=== PATIENT | female | born 1960 | race Caucasian/White ===

== ENCOUNTER → 2016-10-14 | Outpatient (CLI) | payer BC ==
[~2016-10-14] MED LIST: ALPR1TAB3 PO; CIME-56 PO; CLC100X PO; ESCI1TAB10 PO; LACT3000 PO
--- NOTE | 2016-10-14 12:36 | MAMMOGRAPHY REPORT ---
UNILATERAL RIGHT DIGITAL DIAGNOSTIC MAMMOGRAM TOMOSYNTHESIS WITH CAD: 10/14/2016 CLINICAL HISTORY: History of right breast cancer status post lumpectomy August 2014. Here for int erval follow-up. TECHNIQUE: Breast tomosynthesis in addition to standard 2D mammography was performed. Current study was also evaluated with a Computer Aided Detection (CAD) system. Right CC and MLO 2-D and tomosynt hesis images and spot magnification right cc and ML views were obtained. COMPARISON: Comparison is made to exams dated: 03/02/2016 mammogram, 08/25/2015 mammogram, 02/17/2015 mammogram, 07/16/2014 mammogram, 06/11/2014 mammogram, and 06/05/2014 mammogram - [facility]. BREAST COMPOSITION: There are scattered areas of fibroglandular density in the right breast. FINDINGS: There has been no significant interval change in the right breast compared to prior exams. There are stable postoperative changes in the right 12:00 breast from prior lumpectomy, including stable architectural distortion and surgical clips at the lumpectomy bed. A biopsy marker clip is a gain noted in the right upper outer quadrant from prior benign stereotactic biopsy. Spot magnificat ion views demonstrate at least 2 small groupings of very faint punctate calcifications in the latera l right breast, which are stable dating back to at least July 2014 and are therefore probably becky ign; a similar appearing group was previously biopsied and yielded benign pathology. No new cluster s of calcifications are seen. No suspicious masses or areas of architectural distortion are noted. IMPRESSION: ACR-BI-RADS CATEGORY 3: PROBABLY BENIGN Stable posttreatment changes in the right breast, with stable small groupings of faint calcification s in the right lateral breast which are probably benign. Recommend bilateral diagnostic mammograms in 6 months, to reevaluate the right breast postsurgical changes and right breast calcifications and for routine mammography of the left breast. The patient has been verbally notified of the results. Approximately 10% of breast cancers are not detected with mammography. A negative mammographic repor t should not delay biopsy if a clinically suggestive mass is present. Stephanie Carmona M.D. /:10/14/2016 10:42:11 Retail Representative: Twan SHEPPARD(Tatyana)(Arleen), [facility] letter sent: Personal History 3 BI-RADS Code: ACR-BI-RADS Category 3: Probably Benign
== END | disposition home or self-care (01) ==
LOC: C.MAMM 09:07
PROVIDERS: ATTEND Physician Assistant Medical
DX: R92.1 Mammographic calcification found on diagnostic imaging of breast (principal); Z85.3 Personal history of malignant neoplasm of breast

== ENCOUNTER → 2017-01-07 | Outpatient (CLI) | payer BC ==
--- NOTE | 2017-01-07 08:25 | DIAGNOSTIC IMAGING REPORT ---
ABDOMINAL ULTRASOUND, RIGHT LOWER QUADRANT HISTORY: Pain BREAST CA. COMPARISON: None. FINDINGS: No evidence for hernia or mass bile sent criteria of the right flank and right lower quadrant IMPRESSION: No significant abnormality identified within the right lower quadrant Electronically signed by: Reynaldo Santos M.D. 01/07/2017 8:23 AM Dictated Date/Time: 01/07/2017 8:21 AM
== END | disposition home or self-care (01) ==
LOC: C.ULTR 07:19
PROVIDERS: ATTEND Nurse Practitioner Family
DX: D05.10 Intraductal carcinoma in situ of unspecified breast (principal)

== ENCOUNTER → 2017-04-18 | Outpatient (CLI) | payer BC ==
--- NOTE | 2017-04-18 15:12 | MAMMOGRAPHY REPORT ---
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 She also has a history of bilateral benign stereotactic biopsies of additional microcalcifications. She presents for annual mammography. TECHNIQUE: Breast tomosynthesis in addition to standard 2D mammography was performed. Spot magnific ation views of the right breast were also obtained. Current study was also evaluated with a Computer Aided Detection (CAD) system. COMPARISON: Comparison is made to exams dated: 10/14/2016 mammogram, 03/19/2016 mammogram, 03/02/2016 m ammogram, 08/25/2015 mammogram, 06/05/2014 mammogram - [facility], and 06/18/2008. BREAST COMPOSITION: There are scattered areas of fibroglandular density in both breasts. FINDINGS: There is expected architectural distortion and surgical clips in the 12:00 middle one third of the right breast, at the site of prior lumpectomy. There are stable metallic biopsy markers in t he upper outer quadrant of each breast. No obvious new mass, developing asymmetry or focal area of a rchitectural distortion is seen bilaterally. Spot magnification views of the right breast redemonstrate 2-3 faint groupings of punctate and amorph ous microcalcifications lateral to the surgical clips and in the lateral anterior breast on the spot magnification CC view. These appear very similar to the spot magnification views obtained on 017 and they are most likely benign. No other new suspicious cluster of microcalcifications is ident ified in the right breast. Another 12 month follow-up diagnostic mammogram including spot magnificat ion views is recommended to ensure longer stability. No new or suspicious microcalcifications are id entified in the left breast. IMPRESSION: ACR-BI-RADS CATEGORY 3: PROBABLY BENIGN 1. Stable posttreatment changes in the right breast and stable 2-3 faint groupings of punctate and a morphous microcalcifications in the middle and anterior one third of the breast, detailed above. Ano ther 12 month follow-up diagnostic mammogram including spot magnification views is recommended to ens ure longer stability. Annual bilateral screening mammography will also be due at that time. 2. During this diagnostic appointment, the patient reported new symptoms of weight loss, fatigue, ho arseness and chest symptoms. She also has a smoking history. I urged her to discuss these symptoms with her primary care physician or oncologists and additional cross-sectional imaging may be required . These results and recommendations were discussed with the patient at the time of the exam. She tenta tively scheduled the follow-up diagnostic appointment prior to leaving our department. Approximately 10% of breast cancers are not detected with mammography. A negative mammographic report should not delay biopsy if a clinically suggestive mass is present. Irasema Mcdowell M.D. ay/:04/18/2017 12:24:51 Retort Kiln Burner: Komal PRADHAN)(Arleen), [facility] letter sent: Follow Up Recommended 3 BI-RADS Code: ACR-BI-RADS Category 3: Probably Benign
== END | disposition home or self-care (01) ==
LOC: C.MAMM 08:59
PROVIDERS: ATTEND Physician Assistant Medical
DX: R92.0 Mammographic microcalcification found on diagnostic imaging of breast (principal); Z85.3 Personal history of malignant neoplasm of breast; Z08 Encounter for follow-up examination after completed treatment for malignant neoplasm

== ENCOUNTER → 2017-04-29 | Outpatient (CLI) | payer BC ==
[2015-06-11 13:51] VITALS: BP 105/69; PULSE 76
[2017-04-29 09:41] VITALS: BP 105/72; PULSE 52; TEMP 36.5; O2SAT 97
--- NOTE | 2017-04-29 11:09 | Radiation Oncology Follow-Up ---
Radiation Oncology Follow-Up Date of Visit Apr 29, 2017. Reason For Visit Follow-up and concern for weight loss Radiation Completion Date 10/25/14 Diagnosis (1) DCIS (ductal carcinoma in situ) Status: Resolved Onset Date: 06/19/2014 Stage: 0 Permanent Comment: Family history of breast cancer Abnormal mammogram 06/05/2014 Status post stereotactic guided biopsy of the right breast 06/19/2014 revealing high-grade DCIS Status post lumpectomy 08/06/2014 revealing DCIS staged pTisNX estrogen receptor positive progesterone receptor positive Status post completion of radiation therapy 10/25/2014 received 6120 cGy Participation in REATA study Last Edited By: Chelsi Campos on Jun 11, 2015 15:17 Interim History Is seen in follow-up today at her request. She had her routine mammogram 2016. This showed stable post therapy changes in the right breast and stable 2- 3 feet groupings of punctate and amorphous calcifications in the middle and anterior one third of the breast. Twelve-month follow-up was recommended with spot magnification views. The annual screening mammogram will be due at that time. She also had the complaint of weight loss, fatigue, and hoarseness. She discuss this with the radiologist who recommended that she come in for an evaluation. Her weight loss was discussed. She had lost 15 pounds when dieting. She regained the weight. An over the past few months she has lost weight again without dieting. She has been having some discomfort in her mid back. This is in the musculature of the back and not of the spine. She is been having hoarseness of voice over the past few weeks. This is currently not happening when speaking to her. She does have a history of reflux and intermittently takes Tagamet. It is intermittent. In discussing with her her symptoms she related that she has been under a lot of stress. She has stress at work. 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 She has a new relationship and her life. She is a smoker. She smoked one half pack per day for 38 years. She continues to smoke on a very minimal basis. She is trying to quit. She is using to contain patches. She is concerned about her family history mother passed 51 due to metastatic breast cancer. She had BRCA analysis completed and was negative. Allergies Coded Allergies: Fexofenadine (Unverified Allergy, Unknown, rash, 08/01/14) Phenobarbital (Unverified Allergy, Unknown, tongue swells, 08/01/14) Propantheline (Unverified Allergy, Unknown, tongue swells, 08/01/14) Home Medications Scheduled Alprazolam (Xanax), 1 MG PO HS Escitalopram Oxalate (Lexapro), 40 MG PO DAILY Scheduled PRN Cimetidine (Tagamet), 600 MG PO DAILY PRN for Indigestion Docusate Sodium (Colace), 100 MG PO BID PRN for Constipation Lactase (Lactaid), 1 TAB PO DIRECTED PRN for Dyspepsia Review of Systems Gastrointestinal: Symptoms: Rectal Bleeding GI Comments: Rectal spotting at times which pt states she's had evaluated; Oral: Symptoms: No Problems Respiratory: Symptoms: WNL Other Respiratory: Hoarseness; Urinary: Symptoms: WNL Skin: Symptoms: No Problems Breast: Right Upper Arm Measurement: 27.0 Right Mid Arm Measurement: 23.5 Right Wrist Measurement: 15.0 Left Upper Arm Measurement: 27.0 Left Mid Arm Measurement: 22.0 Left Wrist Measurement: 15.5 Arm Dominence: Right Patient Cosmetic Evaluation: Good Staff Cosmetic Evalaluation: Good Physical Exam Vital Signs Date Time Temp Pulse Resp B/P (MAP) Pulse Ox O2 Delivery O2 Flow Rate FiO2 04/29/17 09:41 36.5 52 20 105/72 97 Pain: Side: Bilateral Pain Location: None Patient Pain Scale: 0 - 10 Initial Pain Intensity: 0.0 Fatigue: None General Appearance: no apparent distress Eyes: normal inspection, EOMI ENT: normal ENT inspection, hearing grossly normal Neck: no adenopathy, thyroid normal Respiratory/Chest: lungs clear, no respiratory distress, no accessory muscle use Breast: Breast examination reveals well-healed incision of the right breast. There is fibrous tissue along the incision line and most notably in the center of the incision. Is nontender. There are no masses or tenderness and no axillary adenopathy. Using the Fidelity score cosmesis she has a in excellent outcome. The left breast showed no masses or tenderness no axillary adenopathy. Cardiovascular: regular rate, rhythm, no gallop, no murmur Abdomen: normal bowel sounds, non tender Extremities: no pedal edema Neurologic/Psychiatric: no motor/sensory deficits, alert, normal mood/affect Skin: warm/dry Laboratory Studies Test 04/29/17 10:36 Additional Studies Patient: DEEPTI ANDREW [facility] Rec: [id number] Address1: [address] Address2: Acct ID: [id number] Date: 1960 Sex: F Ref Phy: Chelsi Campos PA-C Att Phy: Chelsi Campos PA-C Brooke Phy: Renetta Franklin C.R.N.P. Inter Phy: Irasema Mcdowell MD [facility] Zip: [place] [id number] SC: C.MAMM Report #: [id number] Private Mortgage Banker Safe: JOSELYN Diagnosis: 6 MONTH F/U BILATERAL--HX BREAST CA Service Date: 04/18/17 MNE: [id number] Ordering Dr: Chelsi Campos PA-C CC: Chelsi Campos PA-C CONF: DICTATED BY: Irasema Mcdowell MD MAMMOGRAPHY REPORT BILATERAL DIGITAL DIAGNOSTIC MAMMOGRAM TOMOSYNTHESIS WITH CAD: 04/18/2017 CLINICAL HISTORY: 57-year-old woman with a personal history of right breast DCIS status post breast conservation therapy. She also has a history of bilateral benign stereotactic biopsies of additional microcalcifications. She presents for annual mammography. TECHNIQUE: Breast tomosynthesis in addition to standard 2D mammography was performed. Spot magnification views of the right breast were also obtained. Current study was also evaluated with a Computer Aided Detection (CAD) system. COMPARISON: Comparison is made to exams dated: 10/14/2016 mammogram, 03/19/2016 mammogram, 03/02/2016 mammogram, 08/25/2015 mammogram, 06/05/2014 mammogram - [facility], and 06/18/2008. BREAST COMPOSITION: There are scattered areas of fibroglandular density in both breasts. FINDINGS: There is expected architectural distortion and surgical clips in the 12:00 middle one third of the right breast, at the site of prior lumpectomy. There are stable metallic biopsy markers in the upper outer quadrant of each breast. No obvious new mass, developing asymmetry or focal area of architectural distortion is seen bilaterally. Spot magnification views of the right breast redemonstrate 2-3 faint groupings of punctate and amorphous microcalcifications lateral to the surgical clips and in the lateral anterior breast on the spot magnification CC view. These appear very similar to the spot magnification views obtained on 10/14/2016 and they are most likely benign. No other new suspicious cluster of microcalcifications is identified in the right breast. Another 12 month follow-up diagnostic mammogram including spot magnification views is recommended to ensure longer stability. No new or suspicious microcalcifications are identified in the left breast. IMPRESSION: ACR-BI-RADS CATEGORY 3: PROBABLY BENIGN 1. Stable posttreatment changes in the right breast and stable 2-3 faint groupings of punctate and amorphous microcalcifications in the middle and anterior one third of the breast, detailed above. Another 12 month follow-up diagnostic mammogram including spot magnification views is recommended to ensure longer stability. Annual bilateral screening mammography will also be due at that time. 2. During this diagnostic appointment, the patient reported new symptoms of weight loss, fatigue, hoarseness and chest symptoms. She also has a smoking history. I urged her to discuss these symptoms with her primary care physician or oncologists and additional cross-sectional imaging may be required. These results and recommendations were discussed with the patient at the time of the exam. She tentatively scheduled the follow-up diagnostic appointment prior to leaving our department. Approximately 10% of breast cancers are not detected with mammography. A negative mammographic report should not delay biopsy if a clinically suggestive mass is present. Irasema Mcdowell M.D. ay/:04/18/2017 12:24:51 Computer Meteorologist: Komal PRADHAN)(Arleen), [facility] letter sent: Follow Up Recommended 3 BI-RADS Code: ACR-BI-RADS Category 3: Probably Benign Dictated by: Irasema Mcdowell MD Signed by: Irasema Mcdowell MD Assessment & Plan Plan: We discussed the above symptoms. It is likely that many of the symptoms that she is having is due to stress. Of asked her to do stretching exercises to help back discomfort. She has Tagamet which she has taken on a when necessary basis for reflux. I've asked her to take it regularly for one week to see if this helps with the hoarseness of the voice. We will check a TSH to review for any abnormality of thyroid function. She'll continue on her schedule of mammography. We discussed bite shots to the area of fibrous tissue of the breast. We asked her to return to our office in 3 months. She'll need to continue follow-up with her family physician in regards to her symptoms. We also discussed low-dose CT. She does not meet the criteria with a 19 year pack history. She'll continue to wean off of cigarettes. Her goal is to stop smoking by September. Total Time In Follow-Up I spent 25 minutes speaking to the patient performing examination. I spent 15 minutes reviewing information in completing this note. AK Copy To Renetta Franklin C.R.N.P. Problem Qualifiers (1) DCIS (ductal carcinoma in situ): Laterality: right Qualified Codes: D05.11 - Intraductal carcinoma in situ of right breast
== END | disposition home or self-care (01) ==
LOC: C.ONC 09:13
PROVIDERS: ATTEND Physician Assistant Medical
DX: Z08 Encounter for follow-up examination after completed treatment for malignant neoplasm (principal); Z92.3 Personal history of irradiation; Z85.3 Personal history of malignant neoplasm of breast

== ENCOUNTER → 2017-06-07 | Outpatient (CLI) | payer OTHER, BC ==
--- NOTE | 2017-06-07 11:15 | DIAGNOSTIC IMAGING REPORT ---
LEFT KNEE 1 OR 2 VIEWS ROUTINE CLINICAL HISTORY: Left knee pain following fall. COMPARISON: None FINDINGS: Alignment of the left knee is anatomic. No acute fracture is identified. No definite joint effusion is identified. Joint spaces are preserved. IMPRESSION: No acute fracture. Electronically signed by: Demetrius Manley M.D. 06/07/2017 11:13 AM Dictated Date/Time: 06/07/2017 11:12 AM
== END | disposition home or self-care (01) ==
LOC: C.RAD1850 10:58
PROVIDERS: ATTEND Emergency Medicine
DX: M25.562 Pain in left knee (principal)

== ENCOUNTER → 2018-01-09 | Outpatient (CLI) | payer OTHER ==
--- NOTE | 2018-01-09 09:50 | Discharge Instructions ---
Discharge Instructions Procedure Procedure Date: Jan 09, 2018. Reason for visit: Right Breast Mass/Possible Bx @ Lumpectomy Site. Discharge Discharge Date: Jan 09, 2018. Discharge Diagnosis: post right breast ultrasound guided core biopsy Instructions Activity Recommendations: Additional Limitations (see below) Return to School/Work: no limitations Recommended Home Diet: No Limitations Provider Instructions: ACTIVITY RECOMMENDATIONS: * No lifting, pushing, pulling or exercising the affected side for three days. RETURN TO SCHOOL/WORK: * You may return to work/school after the procedure, but do not perform any strenuous activities for 24 to 48 hours. MEDICATIONS: * Tylenol (two 325 mg) every four to six hours if needed for mild pain (if not allergic to Tylenol). DIET: * Resume previous diet. SPECIAL CARE INSTRUCTIONS: * Keep biopsy site dry for 24 hours. May shower after 24 hours, but do not soak (bathe) incision. * May remove Tegaderm (plastic patch) tomorrow AFTER showering. * Leave the steri-strips on for one week. Allow the steri-strips to fall off by themselves. If not off after one week, you may remove them. You may place a Bandaid crosswise over the strips, if desired. * Apply ice 10 minutes on and 10 minutes off as needed. * Wear a bra at bedtime to sleep more comfortably for 2-3 days. * Your referring physician should have the results after approximately 5 to 7 business days. * Call for unusual bleeding, fever, drainage, etc or if you have any questions call [phone] during normal business hours or after hours call Dr Mcdowell, . FOLLOW UP VISIT: Follow-up with Referring Physician as scheduled. Allergies Coded Allergies: Fexofenadine (Unverified Allergy, Unknown, rash, 08/01/14) Phenobarbital (Unverified Allergy, Unknown, tongue swells, 08/01/14) Propantheline (Unverified Allergy, Unknown, tongue swells, 08/01/14) Florencio Dang Recommendations: Call your doctor if: * Temperature above 101 degrees * Pain not relieved by pain medicine ordered * There is increased drainage or redness from any incision * You have any unanswered questions or concerns. Your Doctors Instructions noted above were prepared by provider Irasema Mcdowell. Patient Signature Section: Patient Instructions Signature Page Patricia Hayes Patient (or Guardian) Signature/Date: I have read and understand the instructions given to me by my caregivers. Caregiver/RN/Doctor Signature/Date: The above-named patient and/or guardian has received patient instructions on this date. + Original Patient Signature Page (only) stays with chart. Please make copy for patient.
--- NOTE | 2018-01-10 07:38 | MAMMOGRAPHY REPORT ---
ULTRASOUND GUIDED BIOPSY RIGHT BREAST: 01/09/2018 CLINICAL HISTORY: Newly palpable lump over the lumpectomy scar in the 1:00 right breast. Patient pre sents for ultrasound-guided core biopsy. COMPARISON: Comparison is made to exams dated: 01/09/2018 ultrasound, 01/09/2018 mammogram, 04/18/2017 ma mmogram, 03/19/2016 stereotactic biopsy, 03/19/2016 mammogram, and 03/02/2016 mammogram - [facility]. PATIENT CONSENT: The procedure, risks and benefits were discussed with the patient and informed conse nt was obtained both verbally and in writing. Specific risks to this procedure include: bleeding, in fection, puncture of adjacent structure, nontarget biopsy, sampling error, pain, metal allergy and me dication reaction. PROCEDURE DESCRIPTION: A time out was performed and the right breast was agreed as the site of biopsy . The skin was prepped and draped in the usual sterile fashion. The hypoechoic superficial 1.3 cm mas s in the 1:00 right breast was chosen as the target for biopsy. Subcutaneous and intraparenchymal 1% buffered lidocaine, with and without epinephrine, was administered as local anesthesia. A skin incisi on was made. Through the incision, 4 samples were taken with a 14 gauge Achieve biopsy device. A rib bon shaped metallic marker was placed at the biopsy site. Hemostasis was achieved after manual compre ssion. The patient tolerated the procedure well and there was no immediate complication. The samples were sent to the pathology department in an appropriately labeled container. Postprocedure right CC and ML tomosynthesis images were obtained. No significant postbiopsy hematoma is seen. A ribbon-shaped biopsy marker clip is seen near the surgical clips at the lumpectomy site. IMPRESSION: ULTRASOUND GUIDED BIOPSY Status post ultrasound-guided core biopsy of a newly palpable solid mass near the lumpectomy scar in the 1:00 right breast, with ribbon-shaped biopsy marker clip placed at the site. The patient will receive notification of the biopsy results from her referring physician. Irasema Mcdowell M.D. ay/:01/09/2018 10:11:42 Dust Operator: Elizabeth Crabtree, [facility]
--- NOTE | 2018-01-10 07:42 | MAMMOGRAPHY REPORT ---
UNILATERAL RIGHT DIGITAL DIAGNOSTIC MAMMOGRAM TOMOSYNTHESIS WITH CAD AND TARGETED RIGHT ULTRASOUND: CLINICAL HISTORY: 57-year-old woman with a personal history of right breast DCIS status post lumpecto my and radiation therapy, with lumpectomy performed in July 2014. She reports a 2 month history o f a new palpable lump that is increasing in size over her surgical scar in the 1:00 right breast and presents for additional workup. TECHNIQUE: Right breast tomosynthesis in addition to standard 2D mammography was performed. Current s blake was also evaluated with a Computer Aided Detection (CAD) system. COMPARISON: Comparison is made to exams dated: 04/18/2017 mammogram, 10/14/2016 mammogram, 03/19/2016 s tereotactic biopsy, 03/19/2016 mammogram, 03/02/2016 mammogram, and 08/25/2015 mammogram - [facility]. BREAST COMPOSITION: There are scattered areas of fibroglandular density in the right breast. FINDINGS: A triangle or palpable marker overlies the 12:00 to 1:00 right breast, denoting the palpabl e lump pointed out by the patient. The marker is in the area of the patient's lumpectomy site, with expected architectural distortion and surgical clips. No obvious new mass, asymmetry, unexpected dis tortion or suspicious calcifications are seen. There are faint stable grouped calcifications near th e surgical site on the spot magnification views which appear similar to prior posttreatment spot magn ification views. There is also a stable metallic biopsy marker clip in the upper outer middle one th ird of the right breast. Targeted ultrasound was performed over the lump pointed out by the patient, in the 1:00 right breast, 5 cm from the nipple. On palpation, there is a discrete firm ovoid 1 cm mass. On ultrasound, there is focal skin thickening and hypoechoic shadowing tissue measuring approximately 1.3 x 1.2 cm. Alth ough this could represent fat necrosis or scar tissue, given that it is newly palpable with the patie nt, definitive characterization with an ultrasound-guided core biopsy is recommended. IMPRESSION: ACR BI-RADS CATEGORY 4: SUSPICIOUS, TARGETED ULTRASOUND ACR BI-RADS CATEGORY 4: SUSPICIO US 1. Ultrasound-guided core biopsy is recommended for a new palpable 1.3 cm superficial mass near the skin surgical scar over the lumpectomy bed in the 1:00 right breast, which could represent scar tissu e or fat necrosis although recurrent disease is not completely excluded. These results and recommendations were discussed with the patient at the time of the exam. The biops y was performed during the same appointment and please refer to a separate report for full detail. Approximately 10% of breast cancers are not detected with mammography. A negative mammographic report should not delay biopsy if a clinically suggestive mass is present. Irasema Mcdowell M.D. ay/:01/09/2018 09:56:16 Equal Opportunity Assistant: Elizabeth Crabtree, [facility] letter sent: Abnormal 4/5 BI-RADS Code: ACR BI-RADS Category 4: Suspicious Ultrasound BI-RADS: ACR BI-RADS Category 4: Suspici ous
== END | disposition home or self-care (01) ==
LOC: C.MAMM 09:00
PROVIDERS: ATTEND Nurse Practitioner Family
DX: N63.10 Unspecified lump in the right breast, unspecified quadrant (principal); N64.1 Fat necrosis of breast

== ENCOUNTER → 2018-04-24 | Outpatient (CLI) | payer OTHER ==
--- NOTE | 2018-04-25 07:31 | MAMMOGRAPHY REPORT ---
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 Patient presents at time of annual bilateral exam. TECHNIQUE: Bilateral CC and MLO 2D and tomosynthesis images, spot magnification right CC and ML views were obtained over the lumpectomy bed. Current study was also evaluated with a Computer Aided Detec tion (CAD) system. COMPARISON: Comparison is made to exams dated: 01/09/2018 mammogram, 04/18/2017 mammogram, 10/14/2016 ma mmogram, 03/19/2016 mammogram, 03/02/2016 mammogram, and 08/25/2015 mammogram - [facility]. BREAST COMPOSITION: There are scattered areas of fibroglandular density in both breasts. FINDINGS: A linear scar marker overlies the 12:00 middle one third of the right breast. There is exp ected architectural distortion and surgical clips as well as a biopsy marker clip in the 12:00 right breast, at the site of prior lumpectomy. Stable dumbbell-shaped biopsy marker clips are also seen in the right upper outer and left upper outer quadrants. No new suspicious masses, calcifications, are as of architectural distortion or asymmetries are seen bilaterally. No focal skin thickening appreci ated. Recommend bilateral tomosynthesis mammography in 1 year. IMPRESSION: ACR BI-RADS CATEGORY 2: BENIGN BI-RADS: BI-RADS 2BENIGN. Stable mammographic appearance of the breasts, without mammographic evide nce of malignancy. Recommend bilateral screening tomosynthesis mammography in 12 months. ( 9) The patient has been verbally notified of the results. Some breast cancers are not detected with mammography. A negative mammographic report should not junior y biopsy if a clinically suggestive mass is present. Irasema Mcdowell M.D. ay/:04/24/2018 10:10:53 Wood Fence Erector: Elizabeth Crabtree, [facility] letter sent: Normal 1/2 BI-RADS Code: ACR BI-RADS Category 2: Benign
== END | disposition home or self-care (01) ==
LOC: C.MAMM 08:39
PROVIDERS: ATTEND Physician Assistant Medical
DX: Z12.4 Encounter for screening for malignant neoplasm of cervix (principal); Z85.3 Personal history of malignant neoplasm of breast